=== PATIENT | female | born 1980 | race African-American/Black ===

== ENCOUNTER 2022-12-06 18:59 | Emergency (ER) | payer MEDICAID, OTHER ==
[~2022-12-06] VITALS: Ht 162.6 cm; Wt 50.0 kg
[2022-12-06] MEDS ORDERED: ACETAMINOPHEN 325MG TABLET PO ONE (19:30)
[2022-12-06] MEDS ORDERED: ACETAMINOPHEN 325MG TABLET PO NR (19:30)
[2022-12-06] MEDS ORDERED: IBUP-2029 MT (19:53)
[2022-12-06 21:42] VITALS: BP 118/69
== END 2022-12-06 21:44 | disposition home or self-care (01) ==
LOC: ER 18:59
DX: S40.011A Contusion of right shoulder, initial encounter (principal); Y04.0XXA Assault by unarmed brawl or fight, initial encounter; Y93.89 Activity, other specified; Y92.098 Other place in other non-institutional residence as the place of occurrence of the external cause; Y99.8 Other external cause status
CPT/HCPCS: 73030; 99283